=== PATIENT | male | born 1975 | race African-American/Black ===

== ENCOUNTER 2019-01-17 11:45 | Emergency (ER) | payer OTHER ==
[2019-01-17 12:24] VITALS: BP 156/78; PULSE 80; TEMP 97.8; BMI 27.8
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
== END 2019-01-17 12:49 | disposition home or self-care (01) ==
LOC: JERFT 11:45
DX: M54.2 Cervicalgia (principal); M54.6 Pain in thoracic spine; V49.49XA Driver injured in collision with other motor vehicles in traffic accident, initial encounter; Y92.414 Local residential or business street as the place of occurrence of the external cause; Y93.89 Activity, other specified; Y99.8 Other external cause status
CPT/HCPCS: 99282-25